=== PATIENT | male | born 1980 | race Caucasian/White ===

== ENCOUNTER 2022-08-07 18:22 | Emergency (ER) | payer MEDICAID ==
[~2022-08-07] VITALS: Ht 180.3 cm; Wt 81.2 kg
[2022-08-07 18:35] VITALS: BP 137/94
--- NOTE | 2022-08-07 21:22 | NUR ---
ER physician interviewing patient.
--- NOTE | 2022-08-07 21:36 | NUR ---
Patient educated on use of crutches. Patient demonstrated understanding of education of use of crutches by safely ambulating 25 feet with crutches, no further questions from patient.
--- NOTE | 2022-08-07 21:38 | NUR ---
Thelma woodall in ED - 08/07/22 at 2146 by [id number] Patient discharged with v/s stable. Written and verbal after care instructions given and explained. Patient verbalized understanding. Crutches Assisted with steady gait. All questions addressed prior to discharge. Advised to follow up with PMD.
[2022-08-07 21:40] VITALS: BP 108/86
[2022-08-07] MEDS ORDERED: IBUP-2213 PO (21:41)
[2022-08-07] MEDS ORDERED: ACET-10509 PO (21:44)
--- NOTE | 2022-08-07 21:46 | NUR ---
Patient discharged with v/s stable. Written and verbal after care instructions given and explained. Patient alert, oriented and verbalized understanding of instructions. Crutches Assisted with steady gait. with steady gait. All questions addressed prior to discharge. ID band removed. Patient advised to follow up with PMD. Rx of Telenol given. Patient educated on indication of medication including possible reaction and side effects. Opportunity to ask questions provided and answered.
== END 2022-08-07 21:46 | disposition home or self-care (01) ==
LOC: MED 18:22
DX: S83.91XA Sprain of unspecified site of right knee, initial encounter (principal); K50.90 Crohn's disease, unspecified, without complications; Z90.49 Acquired absence of other specified parts of digestive tract; Z79.899 Other long term (current) drug therapy; V87.8XXA Person injured in other specified noncollision transport accidents involving motor vehicle (traffic), initial encounter; Y93.89 Activity, other specified; Y92.89 Other specified places as the place of occurrence of the external cause; Y99.8 Other external cause status
CPT/HCPCS: 73562; 99283

== ENCOUNTER 2022-12-21 05:15 | Emergency (ER) | payer MEDICAID ==
[~2022-12-21] VITALS: Ht 180.3 cm; Wt 84.8 kg
[~2022-12-21 05:15] MED LIST: ACET-10509 PO
[2022-12-21 05:26] VITALS: BP 148/98
--- NOTE | 2022-12-21 05:29 | NUR ---
Dr. Cardoso examining patient at triage.
--- NOTE | 2022-12-21 05:33 | NUR ---
PT TAKEN TO BED 8
[2022-12-21] MEDS ORDERED: HYDROmorphone PFS 2 MG/ML SYR IVP ONE (05:35)
[2022-12-21] MEDS ORDERED: PROPOFOL 200 MG/20 ML VIAL IV ONE (05:35)
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
--- NOTE | 2022-12-21 05:47 | NUR ---
X-Ray at bedside.
--- NOTE | 2022-12-21 05:47 | NUR ---
Patient signs consent for moderate sedation.
--- NOTE | 2022-12-21 05:50 | NUR ---
Thelma woodall in [facility] - 12/21/22 at 0603 by [email or web address] Patient signs consent for moderate sedation.
--- NOTE | 2022-12-21 05:51 | NUR ---
Dr. Cardoso at bedside and given medication and then start procedure - moderate sedation
[2022-12-21] MEDS ORDERED: NAPR-54 PO (06:12)
--- NOTE | 2022-12-21 06:30 | NUR ---
Pt responsive to verbal stimuli. No s/s distress at this time.
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
--- NOTE | 2022-12-21 07:22 | NUR ---
Report recieved from [facility] for transfer of care.
--- NOTE | 2022-12-21 07:22 | NUR ---
[facility]
--- NOTE | 2022-12-21 07:40 | NUR ---
[place] [employer] at bedside.
[2022-12-21] MEDS ORDERED: ACET-5629 PO (08:43)
[2022-12-21 08:50] VITALS: BP 136/64
--- NOTE | 2022-12-21 08:50 | NUR ---
Patient discharged with v/s stable. Written and verbal after care instructions given. Patient alert, oriented and verbalized understanding of instructions. Wheel Chair Assisted with to car. All questions addressed prior to discharge. ID band removed. Patient advised to follow up with PMD. Rx of Percocet given. Opportunity to ask questions provided and answered.
--- NOTE | 2022-12-21 08:51 | NUR ---
The patient's care was reviewed and supervised by Lucy Singh, RN, RN.
== END 2022-12-21 08:50 | disposition home or self-care (01) ==
LOC: MED 05:15
DX: S82.191A Other fracture of upper end of right tibia, initial encounter for closed fracture (principal); X58.XXXA Exposure to other specified factors, initial encounter; Y93.89 Activity, other specified; Y92.89 Other specified places as the place of occurrence of the external cause; Y99.8 Other external cause status
CPT/HCPCS: 27532; 73560; 73562; 99285; G0500; J1170; J2704; Q0092; 99284

== ENCOUNTER 2022-12-23 01:20 | Emergency (ER) | payer MEDICAID ==
[~2022-12-23] VITALS: Ht 180.3 cm; Wt 87.5 kg
[~2022-12-23 01:20] MED LIST changes: +ACET-5629 PO; +NAPR-54 PO
[2022-12-23 01:21] VITALS: BP 124/78
--- NOTE | 2022-12-23 01:30 | NUR ---
PT TO BED 4
--- NOTE | 2022-12-23 01:34 | NUR ---
Dr. Robles by bedside evaluating pt
[2022-12-23] MEDS ORDERED: MORPHINE SULFATE 4 MG/ML SYR IM ONE (01:35)
--- NOTE | 2022-12-23 01:37 | NUR ---
Xray by bedside
--- NOTE | 2022-12-23 01:40 | NUR ---
pt came few days ago and had dislocation of the knee and had fixed here. He came back the secondtime baesuce the pain got worse. pt is alert and oriented x 4. unsteady gait , room air. pt pain is 10/10.
[2022-12-23] MEDS ORDERED: ACET-5629 PO (02:01)
[2022-12-23] MEDS ORDERED: KETOROLAC 60 MG/2 ML VIAL IM ONE (02:30)
[2022-12-23] MEDS ORDERED: CYCL-711 PO (02:33)
[2022-12-23 03:11] VITALS: BP 124/78
--- NOTE | 2022-12-23 03:13 | NUR ---
Patient discharged with v/s stable. Written and verbal after care instructions given and explained. Patient verbalized understanding. Ambulatory with steady gait. All questions addressed prior to discharge. Advised to follow up with PMD. pt left with his belongings
== END 2022-12-23 03:11 | disposition home or self-care (01) ==
LOC: MED 01:20
DX: S82.191A Other fracture of upper end of right tibia, initial encounter for closed fracture (principal); Z88.5 Allergy status to narcotic agent; Z79.899 Other long term (current) drug therapy; Y08.89XA Assault by other specified means, initial encounter; Y93.89 Activity, other specified; Y92.89 Other specified places as the place of occurrence of the external cause; Y99.8 Other external cause status
CPT/HCPCS: 73562; 96372; 99284; J1885; J2270; Q0092

== ENCOUNTER 2023-01-04 21:52 | Emergency (ER) | payer MEDICAID ==
[~2023-01-04] VITALS: Ht 180.3 cm; Wt 87.5 kg
[~2023-01-04 21:52] MED LIST changes: +CYCL-711 PO
[2023-01-04 21:53] VITALS: BP 155/100
--- NOTE | 2023-01-04 21:58 | NUR ---
TO LOBBY A/W BED VIA W/C
--- NOTE | 2023-01-05 01:13 | NUR ---
Patient being evaluated by physician
--- NOTE | 2023-01-05 01:20 | NUR ---
Patient taken to bed 12.
--- NOTE | 2023-01-05 01:21 | NUR ---
Patient BIB by himself. C/O right knee pain and left thumb pain x 3 days. Patient reported, had right knee pain and left thumb pain (redness and swelling) since and more pain today.
[2023-01-05] MEDS ORDERED: LIDOCAINE MPF 1% 10 MG/ML VIAL INJ ONE ×2 (01:40→02:05)
[2023-01-05] MEDS ORDERED: HYDROcodone/APAP 7.5/325 MG 1 TAB PO ONE (02:25)
[2023-01-05] MEDS ORDERED: SULFAMETH/TRIMETH DS 800/160MG 1 TAB PO ONE (02:25)
[2023-01-05] MEDS ORDERED: IBUP-2213 PO (03:05)
[2023-01-05] MEDS ORDERED: HYDR-5080 PO (03:05)
[2023-01-05] MEDS ORDERED: SULF-59 PO (03:05)
--- NOTE | 2023-01-05 04:06 | NUR ---
Patient appears to be resting comfortably in bed. Vital Signs within normal limits. Respirations even and unlabored.
[2023-01-05 04:44] VITALS: BP 142/92
--- NOTE | 2023-01-05 04:44 | NUR ---
Patient discharged with v/s stable. Written and verbal after care instructions given and explained. Patient alert, oriented and verbalized understanding of instructions. Wheel Chair Assisted with to car. All questions addressed prior to discharge. ID band removed. Patient advised to follow up with PMD. Rx of [place], Ibuprofen and Bactrim given. Patient educated on indication of medication including possible reaction and side effects. Opportunity to ask questions provided and answered.
--- NOTE | 2023-01-05 04:46 | NUR ---
Patient called his family for a ride.
== END 2023-01-05 04:44 | disposition home or self-care (01) ==
LOC: MED 21:52
DX: L03.012 Cellulitis of left finger (principal); R60.0 Localized edema; F17.200 Nicotine dependence, unspecified, uncomplicated; Z71.6 Tobacco abuse counseling; Z79.899 Other long term (current) drug therapy; Z79.1 Long term (current) use of non-steroidal anti-inflammatories (NSAID); Z79.891 Long term (current) use of opiate analgesic; Z79.2 Long term (current) use of antibiotics; Z88.8 Allergy status to other drugs, medicaments and biological substances
CPT/HCPCS: 26011; 93971; 99283; J2001; Q0092